=== PATIENT | male | born 1950 | race Caucasian/White ===

== ENCOUNTER 2017-11-13 21:13 | Inpatient (IN) | payer OTHER, MEDICARE ==
[~2017-11-13] VITALS: Ht 172.7 cm; Wt 71.9 kg
--- NOTE | 2017-11-13 21:13 | NUR ---
2112- PT BIBA FULL ARREST. DR. AGUAYO, RT AND HOUSE SUP AT BEDSIDE.
--- NOTE | 2017-11-13 21:14 | NUR ---
PATIENT IS A 67 Y/O MALE BIB [facility] WHO PRESENTS TO THE ED C/O FULL ARREST. PER [facility], PT HAD UNKNOWN DOWN TIME POSSIBLY 45 MINUTES, UTILITY MAINTENANCE WORKER CALLED 911. RIGHT IO ESTABLISHED BY [facility], 3 ROUND OF EPI WERE GIVEN IN THE FIELD. DR. AGUAYO AT RT AT BEDSIDE. PT NONVERBAL. UNABLE TO ASSESS PAIN. [facility] PERFORMING COMPRESSIONS. NO SIGNS OF N/V/D. PERRLA. PT REPOSITIONED FOR COMFORT, BED IN LOWEST POSITION. ER MD DR. AGUAYO NOTIFIED. WILL CONTINUE TO MONITOR. SEE CODE SHEET H/O---COPD, PARKINSONS, ASTHMA Addendum: 11/14/17 at 0305 by MEDDCV PATIENT IS A 67 Y/O MALE BIB [facility] WHO PRESENTS TO THE ED C/O FULL ARREST. PER [facility], PT HAD UNKNOWN DOWN TIME POSSIBLY 45 MINUTES, UTILITY MAINTENANCE WORKER CALLED 911. RIGHT IO ESTABLISHED BY [facility], 3 ROUND OF EPI WERE GIVEN IN THE FIELD. DR. AGUAYO AT RT AT BEDSIDE. PT NONVERBAL AND UNRESPONSIVE, [facility] 3. UNABLE TO ASSESS PAIN. [facility] PERFORMING COMPRESSIONS. PT VENTILATED WITH BVM. NO SIGNS OF N/V/D. PERRLA. PT REPOSITIONED FOR COMFORT, BED IN LOWEST POSITION. ER MD DR. AGUAYO NOTIFIED. WILL CONTINUE TO MONITOR. SEE CODE SHEET H/O---COPD, PARKINSONS, ASTHMA
[2017-11-13 21:15] VITALS: BP 80/47
--- NOTE | 2017-11-13 21:15 | NUR ---
Zofia hong in [facility] - 11/13/17 at 2228 by MEDRJJ ANJU Meredith-LUISA GIVEN
--- NOTE | 2017-11-13 21:16 | NUR ---
ACCU CH 54. D5W IVP GIVEN-NADR AT THIS TIME
--- NOTE | 2017-11-13 21:30 | NUR ---
ASSISTED DR AGUAYO WITH INTUBATION, SUCCESSFUL WITH SIZE 7.5 ETT SECURED AT 25 CM AT THE LIP, PLACED ON VENT SUPPORT AT DOCUMENTED SETTINGS APPROVED BY DR AGUAYO, SPUTUM COLLECTED AND SUBMITTED.
--- NOTE | 2017-11-13 21:32 | NUR ---
NG TUBE INSERTED. PT TOLERATED WELL.
--- NOTE | 2017-11-13 21:35 | NUR ---
ER MD DR. AGUAYO MADE AWARE OF HYPOTHERMIC TEMPERATURE RECTAL 93.8, BEAR HUG AND BLANKETS PLACED.
[2017-11-13] MEDS ORDERED: LEVOFLOXACIN 750 MG/D5W PREMIX 150 ML IV ONE (21:40)
[2017-11-13] MEDS ORDERED: VANCOMYCIN 1,000 MG in DEXTROSE 5% 250 ML IV ONE (21:40)
[2017-11-13] MEDS ORDERED: PIPERACILLIN/TAZOBACTAM 3.375 GM in DEXTROSE 5% 50 ML IV ONE (21:40)
[2017-11-13] MEDS ORDERED: NACL 0.9% 1,000 ML IV ONE ×2 (21:40→23:25)
[2017-11-13] MEDS ORDERED: PIPERACILLIN/TAZOBACTAM 3.375 GM VIAL IV ONE (21:45)
--- NOTE | 2017-11-13 22:30 | NUR ---
PLACEMENT CONFIRMED BY CHEST XRAY, ETT TUBE PULLED BACK TO 24 CM AT THE TEETH/GUM PER DR AGUAYO AND XRAY
--- NOTE | 2017-11-13 22:30 | NUR ---
NG TUBE REMOVED PER DR. AGUAYO. PT TOLERATED WELL.
[2017-11-13 22:35] LABS: HEMATOCRIT 34.5 % (36-52); HEMOGLOBIN 11.5 g/dL (12.0-18.0)
[2017-11-13 22:36] LABS: MEAN CORPUSCULAR HEMOGLOBIN 30 pg (27-31); MEAN CORPUSCULAR HGB CONC 30 g/dL (33-37); MEAN CORPUSCULAR VOLUME 100 fL (80-94); NEUTROPHILS % (AUTO) 77.5 % (42.2-75.2); PLATELET COUNT (AUTO) 245 K/uL (140-450); RED CELL DISTRIBUTION WIDTH 15.2 % (11.6-13.7)
[2017-11-13 22:37] LABS: BASOPHILS % (AUTO) 0.1 % (0.0-2.0); EOSINOPHILS % (AUTO) 1.5 % (0.0-4.0); LYMPHOCYTES % (AUTO) 17.2 % (20.5-51.1); MONOCYTES % (AUTO) 3.7 % (1.7-9.3)
[2017-11-13 22:38] LABS: CHOL/HDL RATIO 2.5 (1-4.5); EOSINOPHILS # (AUTO) 0.1 K/uL (0-0.4); LYMPHOCYTES # (AUTO) 1.2 K/uL (2.0-11.5); MONOCYTES # (AUTO) 0.3 K/uL (0.8-1.0); NEUTROPHILS # (AUTO) 5.4 K/uL (1.8-7.7)
[2017-11-13] MEDS ORDERED: NOREPINEPHRINE 4 MG in DEXTROSE 5% 250 ML IV ONE (22:40)
--- NOTE | 2017-11-13 22:40 | NUR ---
FAMILY BROUGHT TO THE BEDSIDE. DR. AGUAYO, OLENA RN, NINI RN AT BEDSIDE.
[2017-11-13] MEDS ORDERED: NOREPINEPHRINE 4 MG/4 ML VIAL IV ONE ×2 (22:44→22:45)
[2017-11-13 22:45] LABS: ALBUMIN 2.1 g/dL (3.4-5.0); ANION GAP 31.5 (8-16); CARBON DIOXIDE 14.5 mmol/L (21-32); CREATININE 1.8 mg/dL (0.7-1.3); TOTAL BILIRUBIN 0.7 mg/dL (0.0-1.0)
[2017-11-13] MEDS ORDERED: ONDANSETRON 4 MG/2 ML VIAL IVP PRN (22:50)
[2017-11-13] MEDS ORDERED: BEN50 PO (22:58)
[2017-11-13] MEDS ORDERED: CARB1TAB37 PO (22:58)
[2017-11-13] MEDS ORDERED: CLON0.5T PO (22:58)
[2017-11-13] MEDS ORDERED: MONT10TA35 PO (22:58)
[2017-11-13] MEDS ORDERED: NACL 0.9% 1,000 ML IV SCH (23:25)
[2017-11-13] MEDS ORDERED: VANCOMYCIN 1,000 MG VIAL ONE (23:33)
[2017-11-14] VITALS (100 sets, daily range): BP systolic 53–134; BP diastolic 25–92
--- NOTE | 2017-11-14 00:10 | NUR ---
PT TRANSFERRED TO ICU 5 WITH GENA ALMANZA
--- NOTE | 2017-11-14 00:10 | NUR ---
Patient will be admitted to care of DR. KELLOGG. Admited to ICU . Will go to room 5. Belongings list completed. Report to CHAD ALMANZA.
--- NOTE | 2017-11-14 00:10 | NUR ---
PT ADMIT FROM ER . PT COME BY HOSPITAL BED, PT COME WITH 2 RN AND ONE RT. PT IS ETT TO VENT WITH VENT SETTING AC 14,TV 400,FIO2 100% AND PEEP 5. TOLERATING WELL. PT ETT ON 24 CM LIP, ETT NO 7.5. PT WAS S/P FULL ARREST. DIMINIS TO HEATHER LUNGS.IV TO RIGHT FOREARM NO 20, RIGHT HAND 2 LINES BOTH NO 18, LEFT UPPER ARM NO 18.IO TO RIGHT LEOWE LEG. IV DEX 5 % IN NS AT 100 CC/HR AND LEVOPHED AT 15 MCG/MIN.EDEMA NOTED FROM IV INFILTRATE TO RIGHT ARM +3 NON PITTING. MULTIPLE SKIN TEARS TO LEFT ARM AND SKIN TEAR TO RIGHT ARM, MULTIPLE SCABS TO RIGHT KNEE, PRESSURE SORE TO SACRAL, MID BACK NON BLANCHABLE REDNESS.DARK DIRTY TO BOTH FOOT. ABD SOFT DISTENDED. F/C IN PLACE WITH YELLOW CLEAR URINE NOTED ABOUT 5 CC ON THE LINES.HYPOACTIVE BOWEL SOUNDS NOTED ALL QUADRANTS,GENTLE CARE GIVEN .KEPT CLEAN AND DRY.
[2017-11-14] MEDS: DEXT 5% /NACL 0.9% 1,000 ML IV SCH ×2 (00:30→08:50)
[2017-11-14] MEDS ORDERED: EPINEPHrine PFS 0.1 MG/ML SYR IVP ONE (01:00)
[2017-11-14] MEDS ORDERED: SODIUM POLYSTYRENE 15 GM/60 ML UDBTL PO SCH ×2 (01:25→19:30)
[2017-11-14] MEDS ORDERED: LORazepam 2 MG/ML VIAL IVP SCH (01:25)
--- NOTE | 2017-11-14 01:30 | NUR ---
SPEAK WITH MAY TO INSERT F/C. PT NPO EXCEPT MEDS. MADE AWARE K+ 6, PER MD TO GIVE KAY[place]ALE 30 GRAMS,ALSO PER TO ASK TO HELP TO INSERT THE CENTRAL LINE. AT THE UNITS AND AGREE TO INSERT THE CENTRAL LINE. FAMILY AT THE BED SIDE AND AGREE TO SIGN THE CONSENT.
--- NOTE | 2017-11-14 01:45 | NUR ---
NGT INSERTED.TO LEFT NARES.WAITING FOR X-RAY CONFIRMATION
--- NOTE | 2017-11-14 01:50 | NUR ---
CALLED AND ORDER CONTINUE ZOSYN 3.375 Q 8HRS AND CONTINUE [facility]. CHEST X-RAY IN AM.
[2017-11-14] MEDS ORDERED: VANCOMYCIN PER PHARMACY MC PRN ×2 (01:55→07:10)
--- NOTE | 2017-11-14 02:00 | NUR ---
CENTRAL LINE IS INSERTED BY DR. ORTIZ TO RIGHT INTERNAL JUGULAR. X-RAY PLACEMENT DONE RESULT STILL PENDING.
[2017-11-14] MEDS ORDERED: ALBUTEROL SULFATE/IPRATROPIU 3 ML SOL IH PRN (03:45)
[2017-11-14] MEDS ORDERED: NOREPINEPHRINE 4 MG/4 ML VIAL IV ONE (03:58)
[2017-11-14] MEDS: NOREPINEPHRINE 8 MG in DEXTROSE 5% 250 ML IV PRN ×4 (04:13→19:31)
--- NOTE | 2017-11-14 04:30 | NUR ---
CONTINUE ON BEAR HUGGER. TEMP AT THIS TIME 96.6
--- NOTE | 2017-11-14 04:45 | NUR ---
X-RAY RESULT CONFIRM PER MD WINTER TO USE THE CENTRAL LINE. USE CENTRAL LINE FOR THE IVF AND IV MEDS. INCREAS THE LEVOPHED TO 25 MCG/MIN D/T BP 70/47
[2017-11-14] MEDS ORDERED: PIPERACILLIN/TAZOBACTAM 3.375 GM in DEXTROSE 5% 50 ML IV SCH (05:00)
--- NOTE | 2017-11-14 05:30 | NUR ---
AM CARE GIVEN,BED BATH GIVEN, ORAL [place] TUBE INSERTED.WITH POSITIVE PLACEMENT HEARD OVER THE STOMACH. PT HAS DARK BLOOD SECRETION FROM THE GT,CONNECT TO LOW SUCTION. ABOUT 20 CC DRAIN NOTED.
[2017-11-14] MEDS ORDERED: PIPERACILLIN/TAZOBACTAM 3.375 GM VIAL IV ONE (05:42)
[2017-11-14] MEDS: ALBUTEROL SULFATE/IPRATROPIU 3 ML SOL IH SCH ×3 (06:46→19:17)
[2017-11-14 06:51] LABS: MEAN CORPUSCULAR HEMOGLOBIN 30 pg (27-31); MEAN CORPUSCULAR HGB CONC 32 g/dL (33-37); MEAN CORPUSCULAR VOLUME 93 fL (80-94); PLATELET COUNT (AUTO) 293 K/uL (140-450); RED BLOOD CELL COUNT(AUTO) 3.65 MIL/uL (4.20-6.10); RED CELL DISTRIBUTION WIDTH 13.6 % (11.6-13.7)
--- NOTE | 2017-11-14 07:27 | NUR ---
RECIVED PT ON VENT WITH SETTINGS CHARTED BREATH SOUNDS PRESENT BILAT DIMINISHED SXN PT WITH CRISTOBAL SECS SMALL AMT AMBU BAG AT BEDSIDE VENT PLUGGED INTO RED OUTLET DECREASED FI02 DOWN TO .80 RN AWARE WILL CONTINUE TO MONITOR PT ON VENT
--- NOTE | 2017-11-14 07:30 | NUR ---
RECEIVED PT FROM DIRECTOR OF ADULT EPILEPSY RN. PT DOES NOT FOLLOW COMMENDS. BEDSIDE MONITOR SHOWS ST 103, BP 89/63. PUPILS SLUGGISH, ETT TO VENT WITH SETTING FIO2 100%, VT 400, PEEP 5, AC 14. OG TUBE IN PLACE CONNECTED TO SUCTION WITH 200 MLS BLOODY SECRETION NOTED. PT HAS RIGHT IJ RUNNING LEVOPHED AT 24.99 MCG/MIN AND D5 NS AT 100 MLS/HR. MULTIPLE WOUNDS TO ALL THE EXTREMITIES, +2 PITTING EDEMA TO RIGHT ARM NOTED, GALAN CATH IN PLACE WITH 100 MLS LIGHT ROBE URINE NOTED. SCDS IN PLACE, HOB ELEVATED 30 DEGREES WITH LOW BED POSITION, FAMILY AT BEDSIDE. WILL CONTINUE TO MONITOR PT.
--- NOTE | 2017-11-14 07:31 | NUR ---
DR.ZAIDI BAILEY MADE AWARE ABOUT NEW CONSULT FROM . UP DATE THE PT STATUS. NEW ORDER PROTONIX 40 MG IV DAILY. ORDER NOTED AND CARRIED OUT.
[2017-11-14 07:59] LABS: WHITE BLOOD COUNT (AUTO) 32.1 K/uL (4.8-10.8)
[2017-11-14 08:00] LABS: LYMPHOCYTES % (MANUAL) 8 % (20-46); METAMYELOCYTES % 2 % (0-0); MONOCYTES % (MANUAL) 4 % (5-12)
--- NOTE | 2017-11-14 08:00 | NUR ---
TURNED AND REPOSITIONED PT, PT HAS WARM BLANKET MACHINE , TEMP IN NORMAL RANGE, TURNED OFF WARM BLANKET MACHINE
[2017-11-14] MEDS: LORazepam 2 MG/ML VIAL IVP PRN ×2 (08:09→13:23)
--- NOTE | 2017-11-14 08:09 | NUR ---
CALLED DR. VALDEZ Pena, PT BP DROPS TO 49/30. PER DR. KELLOGG GIVE PT NEOSNEPHRINE DRIP, WILL CARRY OUT.
--- NOTE | 2017-11-14 08:09 | NUR ---
PT JERKING AT THIS TIME AND BP DROPS TO 49/30, HOLD ATIVAN.
--- NOTE | 2017-11-14 08:30 | NUR ---
DR. NELSON IN TO SEE PT, NOTIFIED PT'S VITAL SIGNS. PER DR. NELSON, GIVE PT NS WIDE OPEN 2L. WILL CARRY OUT
[2017-11-14] MEDS ORDERED: SODIUM BICARBONATE 8.4% 100 MEQ in NACL 0.9% 1,000 ML IV SCH (08:40)
[2017-11-14] MEDS ORDERED: PHENYLEPHRINE 10 MG in NACL 0.9% 250 ML IV PRN (08:45)
[2017-11-14] MEDS: PHENYLEPHRINE 40 MG in NACL 0.9% 250 ML IV PRN ×3 (08:46→22:03)
[2017-11-14] MEDS: PANTOPRAZOLE 40 MG INJ VIAL IVP SCH (08:53)
[2017-11-14] MEDS ORDERED: DEXTROSE 50% 50 ML SYR IVP SCH ×2 (08:58→14:15)
[2017-11-14] MEDS ORDERED: INSULIN REGULAR, HUMAN 100 UNIT/ML VIAL IV SCH (09:01)
[2017-11-14 09:02] LABS: ANION GAP 21.7 (8-16); CREATININE 2.1 mg/dL (0.7-1.3); MAGNESIUM 2.3 mg/dL (1.8-2.4); TOTAL BILIRUBIN 1.8 mg/dL (0.0-1.0)
--- NOTE | 2017-11-14 09:05 | NUR ---
PATIENT HAS BEEN SCREENED AND CATEGORIZED HIGH NUTRITION RISK. PATIENT WILL BE SEEN WITHIN 1-2 DAYS OF ADMISSION. 11/13/18-11/14/[address]
[2017-11-14] MEDS ORDERED: SODIUM BICARBONATE 8.4% PFS 50 MEQ/50 ML SYR IVP SCH ×2 (09:06→16:10)
--- NOTE | 2017-11-14 09:16 | NUR ---
PT BP 116/[address] PER [address] NELSON, IT IS OK TO GIVE ATIVAN AT THIS TIME.
--- NOTE | 2017-11-14 09:18 | NUR ---
DECREASED FIO2 T0 60 INCREASED VT TO 500 RN AWARE
[2017-11-14 09:52] LABS: POTASSIUM 6.7 mmol/L (3.5-5.1)
--- NOTE | 2017-11-14 09:54 | NUR ---
DR. VALDEZ Pena IN TO SEE PT.
[2017-11-14] MEDS ORDERED: LEVOFLOXACIN 250 MG/D5 PREMIX 50 ML IV ONE (11:20)
--- NOTE | 2017-11-14 11:36 | NUR ---
decreased fio2 to .50 ARCHIE GIBBS
--- NOTE | 2017-11-14 12:00 | NUR ---
TURNED AND REPOSITIONED PT, ORAL CARE GIVEN. FAMILY AT BEDSIDE. BLOODY SECRETION NOTED WHILE CLEANING PT.
[2017-11-14 12:36] LABS: ANION GAP 21.2 (8-16); CARBON DIOXIDE 19.6 mmol/L (21-32); CREATININE 2.4 mg/dL (0.7-1.3); POTASSIUM 5.8 mmol/L (3.5-5.1)
[2017-11-14] MEDS: PIPER/TAZO 3.375GM/D5W PREMIX 50 ML IV SCH ×2 (13:17→20:05)
[2017-11-14] MEDS ORDERED: NACL 0.9% 1,000 ML IV SCH (14:00)
[2017-11-14] MEDS ORDERED: INSULIN REGULAR, HUMAN 100 UNIT/ML VIAL SUBQ ONE (14:00)
--- NOTE | 2017-11-14 14:16 | NUR ---
CM NOTE CHART REVIEWED FOR ADMISSION CRITERIA
[2017-11-14] MEDS ORDERED: INSULIN REGULAR, HUMAN 100 UNIT/ML VIAL IVP SCH (14:17)
--- NOTE | 2017-11-14 15:06 | NUR ---
11/14/2017 RD INITIAL ASSESSMENT COMPLETED PT TO BE PROVIDED WITH >75% ESTIMATED ENERGY AND PROTEIN NEEDS WITHIN 2-3 DAYS DIETITIAN WILL MONITOR NPO STATUS, NUTRITION-RELATED LABS TRENDING WNL, SKIN INTEGRITY, WEIGHTS, GI FUNCTION. DISCHARGE PLAN:ONGOING, PENDING CLINICAL COURSE. RACHEAL URBINA RD
[2017-11-14 15:58] LABS: CREATINE KINASE MB 81.7 ng/mL (0-3.6)
--- NOTE | 2017-11-14 16:15 | NUR ---
PAGED DR.PALIWAL Pena REGARDING CRITICAL LAB REPORT TROP 13.929, VOICE MESSAGE LEFT, THEN CALLED DR. VALDEZ Bernal
--- NOTE | 2017-11-14 18:00 | NUR ---
TURNED AND REPOSITIONED PT, PT HAD SMALL AMOUNT OF BM. CLEANED PT.
[2017-11-14 18:09] LABS: ANION GAP 17.3 (8-16); CARBON DIOXIDE 22.3 mmol/L (21-32); CREATININE 2.9 mg/dL (0.7-1.3)
--- NOTE | 2017-11-14 18:10 | NUR ---
CRITICAL LAB REPORT RECEIVED, TROP 15.67, DR. VALDEZ Valerio AT BEDSIDE. MADE HIM AWARE PAGED DR. VALDEZ Pena THIS AFTERNOON REGARDING CRITICAL LAB REPORT, DID NOT RECEIVE RESPONSE YET .
[2017-11-14 18:11] LABS: POTASSIUM 5.6 mmol/L (3.5-5.1)
--- NOTE | 2017-11-14 19:15 | NUR ---
REPORT GIVEN TO OIL FIELD PIPELINE SUPERVISOR RN.
--- NOTE | 2017-11-14 19:17 | NUR ---
RECEIVED ON A SmallableSCAPE R860 VENTILATOR PLUGGED INTO RED OUTLET TO A PORTEX ENDOTRACHEAL TUBE #7.5 SECURED AT 24CM LIP/GUM LINE WITH AN ANCHOR FAST CUFF PRESSURE CHECKED NOTED AMBU BAG NOTED AT HOB LOC EYES OPEN NON-RESPONSIVE BREATH SOUNDS DIMINISHED BILATERAL WITH GOOD CHEST RISE AIRWAY PATENT
[2017-11-14] MEDS: SODIUM BICARBONATE 8.4% 150 MEQ in DEXTROSE 5% 1,000 ML IV SCH (19:29)
--- NOTE | 2017-11-14 19:30 | NUR ---
RECEIVED REPORT FROM AM SHIFT PT IS LETHARGIC. CONT ON ETT TO VENT WITH VENT SETTING AC RATE 14,TV 500,FIO2 45 AND PEEP 5. NO RESP DISTRESS AT THIS TIME. HEATHER LUNGS SOUND DIMINISH. HOB UP 30-45 DEGREES.ST ON MONITOR. CENTRAL LINE TO RIGHT IJ TRIPLE LUMENS INTACT WELL, NO S/S OF INFECTION ON THE SITE. CONT ON IV SODIUM BICARBONATE 8.4% 150 MEQ IN DEX 5% 1000 CC AT 150 ML/HR. CONT ON LEVOPHED 30 MCG/HR AND PHENYLEPRINE AT 25 MCG/MIN TOLERATED WELL. CONT ON IV ABT VANCOMYCIN AND ZOSYN ORDER.SKIN WARM TO TOUCH. OGT IN PLACE, PLACE MENT CONFIRM. PT REMIND NPO XCEPT MEDS. ABD SOFT DISTENDED. POSITIVE BOWEL SOUNDS ALL QUADRANTS. SKIN NON INTACT. MULTIPLE SKIN TEARS ,EDEMA TO RIGHT ARM PITTING+2 AND WOUND ON SACRAL. F/C IN PLACE WITH YELLOW CLEAR URINE NOTED ON THE BAG.KEPT PT CLEAN AND DRY.
[2017-11-14] MEDS: SODIUM BICARBONATE 8.4% PFS 50 MEQ/50 ML SYR IVP SCH ×3 (19:45→20:15)
--- NOTE | 2017-11-14 19:45 | NUR ---
LABS CALLED AND REPORT THE PT IS HIGH >120,INR>[address] KELLOGG MADE AWARE. NEW ORDER TO DO CT SCAN CHEST WITH CONTRAST FOR R/O PE AND ULTRASOUND LEG FOR DVT TO BLE. ORDER NOTED AND CARRIED.
[2017-11-14 19:47] LABS: PROTHROMBIN TIME > 120.0 secs (10.8-13.4)
--- NOTE | 2017-11-14 20:50 | NUR ---
SODIUM BICARBONATE 8.4 % 50 MEQ SYR GIVEN X 3 Q 15 MINUTES TOLERATED WELL. FAMILY AT BED SIDE.
--- NOTE | 2017-11-14 22:00 | NUR ---
AWAKE STABLE NO APPARENT RESPIRATORY DISTRESS NOTED GOOD CHEST RISE FAMILY AT BEDSIDE
[2017-11-14] MEDS: VANCOMYCIN 750 MG in DEXTROSE 5% 250 ML IV SCH (22:01)
--- NOTE | 2017-11-14 22:15 | NUR ---
ULTRASOUND TO BLE DONE RESULT STILL PENDING. BLEEDING NOTED IN THE MOUTH,CLEAN AREA. SON AT BED SIDE.
--- NOTE | 2017-11-14 22:46 | NUR ---
EXPLAIN TO SON THE ORDER FOR CT CHEST WITH CONTRAST. PER SON WAIT FOR HIS SISTER ROBLES FOR CONSENT ABD THE FAMILY STILL DISCUSS ABOUT THE ORDER.
[2017-11-15] VITALS (106 sets, daily range): BP systolic 65–128; BP diastolic 45–78
[2017-11-15] MEDS: NOREPINEPHRINE 8 MG in DEXTROSE 5% 250 ML IV PRN ×5 (00:09→23:55)
[2017-11-15] MEDS: ALBUTEROL SULFATE/IPRATROPIU 3 ML SOL IH SCH ×4 (00:24→19:27)
[2017-11-15] MEDS: SODIUM BICARBONATE 8.4% 150 MEQ in DEXTROSE 5% 1,000 ML IV SCH ×2 (01:45→04:59)
--- NOTE | 2017-11-15 01:45 | NUR ---
IVF STILL RUNNING AT 150 CC/HR ORDER ABOUT 500 CC IN THE BAG
--- NOTE | 2017-11-15 02:00 | NUR ---
PT SLEEPING, NO S/S OF RESP.DISTRESS. SON AT BED SIDE.
--- NOTE | 2017-11-15 04:00 | NUR ---
AM CARE GIVEN,SPONGE BATH,MOUTH CARE AND F/C CARE. KEPT PT CLEAN AND DRY.
[2017-11-15] MEDS: PIPER/TAZO 3.375GM/D5W PREMIX 50 ML IV SCH ×3 (04:53→21:07)
[2017-11-15] MEDS: PHENYLEPHRINE 40 MG in NACL 0.9% 250 ML IV PRN ×3 (04:55→18:27)
--- NOTE | 2017-11-15 05:21 | NUR ---
CENTRAL LINE DRESSING CHANGE SYLVIA,NO S/S OF INFECTION, ALL LINE FLUSHING WELL. KEPT CLEAN AND DRY.
[2017-11-15 06:10] LABS: MEAN CORPUSCULAR VOLUME 91 fL (80-94)
[2017-11-15 06:22] LABS: HEMATOCRIT 30.5 % (36-52); MEAN CORPUSCULAR HEMOGLOBIN 30 pg (27-31); MEAN CORPUSCULAR HGB CONC 33 g/dL (33-37); PLATELET COUNT (AUTO) 168 K/uL (140-450); RED BLOOD CELL COUNT(AUTO) 3.34 MIL/uL (4.20-6.10); RED CELL DISTRIBUTION WIDTH 13.1 % (11.6-13.7)
--- NOTE | 2017-11-15 06:45 | NUR ---
ROBLES DAUGHTER MADE AWARE THAT ULTRA SOUND TO BLE DONE AND RESULT NEGATIVE DVT . ALSO MADE AWARE THERE IS ORDER FOR CHEST CT WITH CONTRAST TO R/O PE, ACCORDING TO RADIOLOGY UNABLE TO DO IT D/T KIDNEY FUNCTION NOT GOOD AT THIS TIME BUN AND CREAT IS STILL HIGH.WILL F/U IN AM SHIFT WITH .
[2017-11-15 06:51] LABS: ALBUMIN 1.8 g/dL (3.4-5.0); ANION GAP 15.8 (8-16); CARBON DIOXIDE 28.1 mmol/L (21-32); MAGNESIUM 1.5 mg/dL (1.8-2.4); PHOSPHORUS 4.7 mg/dL (2.5-4.9); POTASSIUM 4.9 mmol/L (3.5-5.1); TOTAL BILIRUBIN 3.8 mg/dL (0.0-1.0)
--- NOTE | 2017-11-15 07:09 | NUR ---
RECEIVED PT ON [place] ON A/C 12 VT500 PEEP5 FIO2 45 ALARMS ARE ON AND AUDIBEL BMV HOB PTS ET TUBE SIZE 7.5 IS SECURE 24CM TEETH PT IN HF ASLEEP BS DIMINISHED I\L LAVAGE AND SX SMALL BLOOD TINGED VENT PLUGGED INTO RE OUTLET NO APPARENT DISTRESS NOTED
--- NOTE | 2017-11-15 07:20 | NUR ---
REPORT GIVEN TO BRANDY SUTHERLAND MADE AWARE TO ASK MD ORDER OF PNA AND FLUE VACCINE.PT IS STABLE AT THIS TIME. Addendum: 11/15/17 at 0728 by Sravanthi Rubio RN GUSTABO CAPUTO.
--- NOTE | 2017-11-15 07:28 | NUR ---
REPORT GIVEN TO BRANDY KULKARNI. MADE AWARE THAT UNABLE TO DO CHEST CT SCAN WITH CONTRAST DO TO BUN AND CREAT IS HIGH. TO FOLLOW UP WITH MD IN AM.
--- NOTE | 2017-11-15 07:41 | NUR ---
DR KELLOGG COME TO SEE PT AND MADE AWARE THAT CHEST CT IS NOT DONE D/T BUN AND CREAT HIGH
--- NOTE | 2017-11-15 07:44 | NUR ---
SEEN BY DR. KELLOGG AT BEDSIDE. PT IS DNR CODE STATUS FAMILY HAD SIGN THE CODE STATUS.
[2017-11-15] MEDS ORDERED: SODIUM BICARBONATE 8.4% 50 MEQ in NACL 0.9% 1,000 ML IV SCH (07:50)
--- NOTE | 2017-11-15 08:00 | NUR ---
Patient HR 120s, and receiving levophed, and neosynephrine high dose, and sbp 90s. On vent to oral ETT with settings FIO2 45%, TV 500, AC 14, peep +5. Family at bedside, and I did some teaching regarding the HR, and gave simple explanation regarding how vasopressor drips increase the blood pressure to sustain bp. Flex Sanchez RN
[2017-11-15 08:04] LABS: EOSINOPHILS % (MANUAL) 1 % (0-4); LYMPHOCYTES % (MANUAL) 6 % (20-46); MONOCYTES % (MANUAL) 3 % (5-12)
[2017-11-15] MEDS ORDERED: NACL 0.9% IV SCH ×2 (09:00→17:00)
[2017-11-15] MEDS ORDERED: SODIUM BICARBONATE IV SCH ×2 (09:00→17:00)
[2017-11-15] MEDS ORDERED: PHYTONADIONE 10 MG in NACL 0.9% 50 ML IV SCH (09:00)
[2017-11-15] MEDS: PANTOPRAZOLE 40 MG INJ VIAL IVP SCH (09:30)
[2017-11-15] MEDS: POLYVINYL ALCOHOL 1.4% OP 15 ML SOL OP SCH ×3 (09:30→16:26)
[2017-11-15] MEDS: CALCIUM CARB 600 MG TAB NG SCH ×2 (09:32→21:07)
--- NOTE | 2017-11-15 10:00 | NUR ---
Patient remains on levophed @ 25mcg/min, and neosynephrine drip to keep sbp > 90s, unable to titrate due to patient vs labile, and do dip down to mid 70s at times. Patient needs frequent suctioning, mod amt pink tinged secretions. Flex Sanchez RN
--- NOTE | 2017-11-15 10:34 | NUR ---
VENT CHECK, NO CHANGES MADE FAMILY AT BEDSIDE
[2017-11-15] MEDS ORDERED: SODIUM BICARBONATE 8.4% 50 MEQ in DEXTROSE 5% 1,000 ML IV SCH (11:00)
--- NOTE | 2017-11-15 12:00 | NUR ---
EEG DONE BY RADHA Mckay
--- NOTE | 2017-11-15 12:00 | NUR ---
Hematology visits patient, updates family regarding patient having problem with coagulation. Patient did receive vitamin K earlier today IVPB. Flex Sanchez RN
--- NOTE | 2017-11-15 12:02 | NUR ---
VENT CHECK, NO CHANGES MADE PT SLEEPING WITH FAMILY AT BEDSIDE
[2017-11-15 12:26] LABS: PROTHROMBIN TIME 75.2 secs (10.8-13.4)
--- NOTE | 2017-11-15 14:00 | NUR ---
Family members coming in all day, two at a time, visiting with patient, and given privacy to visit. Flex Sanchez RN
[2017-11-15] MEDS: LORazepam 2 MG/ML VIAL IVP PRN (16:26)
--- NOTE | 2017-11-15 16:45 | NUR ---
Family at nursing station, and mail messenger updates family on patient present condition, and family gives verbal acknowledgement of understanding information received. Flex Sanchez RN
--- NOTE | 2017-11-15 19:00 | NUR ---
Correction on neosynephrine dose rate, is 100mcg/min due to concentration 40mg/250ml, and levophed drip @ 25mcg/min. SBP stay mid 90s most of the day, and have not titrated drips due to consistent low bps. ST HR 120s without ectopy. Flex Sanchez RN
--- NOTE | 2017-11-15 19:30 | NUR ---
RECEIVED A REPORT FROM LAUREANO NAVA RN. PT EYES CLOSED. NONVERBAL. UNABLE TO FOLLOW COMMANDS. ETT TO VENT AC14, TV 500, FIO2 45, PEEP. BILATERAL LUNG SOUNDS WITH CRACKLES AND DIMINISHED. NOTED BLOOD TINGED SECRETION IN THE TUBING. OGT IN PLACE. S1 ANS S2 HEARD WITHOUT ABNORMAL SOUNDS. CENTRAL LINE TO RIJ WITH TRIPLE LUMEN. ALL PATENT AND ASYMPTOMATIC. GENERALIZED PITTING EDEMA +2 NOTED. MULTIPLE DISCOLORATION AND SKIN TEARS ON UPPER EXTREMITIES. REDNESS TO COCCYX AREA NOTED. PT HAD LARGE SOFT BROWN BOWEL MOVEMENT. ASSISTED WITH HYGIENE. PEDAL PULSE MORE THAN 3 SECONDS. ON LEVOPHED AND JAMAL-SYNEPHRINE DRIPS. ON CONTINUOUS CARDIAC MONITORING AND ST ON MONITOR. AFEBRILE. FLACC 0. CALL LIGHT IN REACH. BED KEPT TO LOWEST AND HOB ELEVATED TO 30 DEGREES. WILL CONTINUE TO MONITOR.
--- NOTE | 2017-11-15 19:41 | NUR ---
RECEIVED PT STABLE ON VENT SUPPORT AT DOCUMENTED SETTINGS, SUCTIONED SMALL AMOUNTS OF THIN BLOOD TINGED SECRETIONS, HHN TX GIVEN, NO RESP DISTRESS OR SOB NOTED AT THIS TIME, 7.5 ETT SECURED AND PATENT AT 24 CM AT THE GUMS, ALARMS SET AND AUDIBLE, AMBU BAG AT BEDSIDE, VENT PLUGGED INTO RED OUTLET, WILL CONT TO MONITOR.
[2017-11-15] MEDS ORDERED: AMIODARONE 450 MG in DEXTROSE 5% 250 ML IV SCH (20:05)
--- NOTE | 2017-11-15 20:05 | NUR ---
PATIENT IS HAVING CONTINOUS V-TACH; PULSE CHECKED, PRESENT; PAGED DR. Carol KELLOGG, WITH NEW ORDER TO START PATIENT ON AMIODARONE DRIP PER PROTOCOL; CARRIED OUT.
[2017-11-15] MEDS ORDERED: AMIODARONE 150 MG/3 ML VIAL IV ONE (20:11)
--- NOTE | 2017-11-15 20:11 | NUR ---
AMIODARONE LOADING DOSE ADMINISTERED ORDERED.
[2017-11-15] MEDS ORDERED: AMIODARONE 450 MG/9 ML VIAL IV ONE (20:26)
--- NOTE | 2017-11-15 20:33 | NUR ---
AMIODARONE MAINTENANCE DOSE STARTED.
--- NOTE | 2017-11-15 20:35 | NUR ---
BP=80/62. AQ=107, 99%, R=31. JAMAL-SYNEPHRINE @150MCG/MIN AND LEVOPHED @30MCG/MIN AT THIS TIME. WILL CONTINUE TO MONITOR.
[2017-11-15] MEDS ORDERED: PIPERACILLIN/TAZOBACTAM 3.375 GM VIAL IV ONE (21:31)
--- NOTE | 2017-11-15 21:55 | NUR ---
PATIENT'S FAMILY DECIDED TO DO STOPPED EVERYTHING OR TERMINAL WEANING OF THE PATIENT; PAGED DR. NEDA KELLOGG TO INFORMED HIM OF FAMILY'S DECISION.
--- NOTE | 2017-11-15 22:15 | NUR ---
NO RETURN CALL FROM DR. NEDA KELLOGG; PAGED HIM AGAIN TO RELAY THE PATIENT'S FAMILY WISHES OR DECISION.
--- NOTE | 2017-11-15 22:32 | NUR ---
STILL NO RETURN CALL FROM DR. NEDA KELLOGG; PAGED HIM AGAIN.
[2017-11-15] MEDS: VANCOMYCIN 750 MG in DEXTROSE 5% 250 ML IV SCH (22:35)
--- NOTE | 2017-11-15 23:00 | NUR ---
DR. NEDA KELLOGG WAS PAGED AGAIN.
--- NOTE | 2017-11-15 23:15 | NUR ---
STILL NO RETURN CALL FROM DR.MIT KELLOGG, SO I PAGED DR. CARTWRIGHT TO INFORM HER ABOUT THE PATIENT'S WISHES OR DECISION ON TERMINAL WEANING; SHE ANSWERED IMMEDIATELY AND ORDERED TO GO AHEAD TERMINAL WEANING AND START PATIENT ON COMFORT MEASURES, MORPHINE DRIP PER PROTOCOL; RABBLE FURNACE TENDER BAYLEE WAS INFORMED TOO.
[2017-11-15] MEDS ORDERED: MORPHINE SULFATE 50 MG in NACL 0.9% 45 ML IV SCH (23:20)
--- NOTE | 2017-11-15 23:24 | NUR ---
PAGED AGAIN DR. RED THRU HIS CELLPHONE BUT NO RETURN CALL SO PAGED HIM AGAIN FOR THE 6TH TIME AT 3465 AND THIS TIME HE ANSWERED MY PAGE; INFORMED HIM ABOUT THE FAMILY'S DECISION ON TERMINAL WEANING AND TOLD HIM TOO THAT DR. CARTWRIGHT ALREADY GAVE ORDER ABOUT THE COMFORT MEASURES; NO FURTHER ORDERS MADE.
[2017-11-16] VITALS (7 sets, daily range): BP systolic 41–123; BP diastolic 24–75
[2017-11-16] MEDS: PHENYLEPHRINE 40 MG in NACL 0.9% 250 ML IV PRN (00:16)
--- NOTE | 2017-11-16 01:20 | NUR ---
RT, THIS RN, CHARGE NURSE, PT'S SON AT BED SIDE. ALL DRIPS ARE DISCONTINUED. PALLIATIVE EXTUBATION COMPLETED. OGT REMOVED. BLOOD MIXED SPUTUM NOTED. ORALLY SUCTIONED. PLACED O2 VIA NC FOR COMFORT. MORPHINE DRIP IS RUNNING ORDERED FOR COMFORT.
--- NOTE | 2017-11-16 01:25 | NUR ---
PT EXTUBATED PER DR KELLOGG'S ORDERS, PLACED ON 2LPM NC, ON COMFORT MEASURES.
--- NOTE | 2017-11-16 01:30 | NUR ---
FAMILY MEMBERS ARE AT BED SIDE. BP=42/24. HR=96, R=26. 60% O2 SAT. FLACC 0.
--- NOTE | 2017-11-16 01:45 | NUR ---
PT ASYSTOLE. NO CHEST MOVEMENT. NO PULSE PALPATED AND AUSCULTATED. PRONOUNCED BY DR. LEDBETTRE. FAMILY AT BED SIDE.
--- NOTE | 2017-11-16 02:18 | NUR ---
[employer] CALLED @[phone] AND LEFT A MESSAGE OF PT'S . [employer] WILL BE CALLING THE FACILITY.
--- NOTE | 2017-11-16 02:25 | NUR ---
NEDA BENÍTEZ WAS PAGED AND LEFT A MESSAGE WITH THE EXCHANGE.
--- NOTE | 2017-11-16 02:30 | NUR ---
CALLED [facility] @[phone] AND SPOKE TO NOE. ID# [id number]
--- NOTE | 2017-11-16 02:49 | NUR ---
CARLOS FROM [facility] CALLED AND SAID THEY WILL NOT TAKE THE BODY AND CALL [facility] OFFICE TO RELEASE THE BODY.
--- NOTE | 2017-11-16 03:18 | NUR ---
DR. KELLOGG CALLED BACK AND WAS INFORMED ABOUT THE PT'S .
--- NOTE | 2017-11-16 04:07 | NUR ---
CALLED [employer]ELD [employer]PLING TECHNIC[employer] @[phone] AGAIN BECAUSE NO CALL WAS RECEIVED YET. SPOKE WITH TREVON AND SHE SAID THEY ARE EXTREMELY BACKED UP SO WE WILL BE RECEIVING A CALL SOON IT'S OUR TURN.
--- NOTE | 2017-11-16 06:27 | NUR ---
[employer] SERV[employer] TEAM MEMBER NUMBER CALLED @ [phone], [place] ANSWERING SERVICE MADE AWARE OF PT EXPIRATION. MARIETTA STATED SHE WOULD RELAY MESSAGE TO [employer] SERVICE TEAM MEMBER. AWAITING CASE NUMBER AND FURTHER INSTRUCTION.
--- NOTE | 2017-11-16 08:00 | NUR ---
RECEIVED CALL FROM FLANGING MACHINE OPERATOR OFFICE AFTER COMPLETED GIVE THE REPORT TO MARGEUTY JANICE MUELLER SHE RELEASED THE BODY TO MORTUARY CASE # [id number].
--- NOTE | 2017-11-16 08:05 | NUR ---
NOTIFIED [employer] WILL COME TO DOWEL PIN WORKER THE BODY .
--- NOTE | 2017-11-16 08:10 | NUR ---
CALLED AND NOTIFIED PT. DAUGHTER KASSI AND ROBLES REGARDING HOME [employer] SAFETY PROGRAM COORDINATOR.
[2017-11-16] MEDS ORDERED: MUPIROCIN 2% OINT 22 GM TUBE TP SCH (09:00)
[2017-11-16] MEDS ORDERED: CHLORHEXADINE GLUC 2% CLOTH TP SCH (09:00)
--- NOTE | 2017-11-16 09:35 | NUR ---
THE BODY CONTRACT CONSULTANT BY HALI FROM [facility] ALL PAPER SIGN MOHAMMED THE HOUSE SUPERVISE NOTIFIED.
--- NOTE | 2017-11-17 08:14 | NUR ---
WOUND CARE EVALUATION NOT DONE. PT .
== END 2017-11-16 01:45 | disposition expired | DRG 871 ==
LOC: MED 21:13 → EDBD 21:13 → MIC 22:55
PROVIDERS: ADMIT Preventive Medicine Preventive Medicine/Occupational Environmental Medicine; ATTEND Preventive Medicine Preventive Medicine/Occupational Environmental Medicine
PROC: 5A12012 Performance of Cardiac Output, Single, Manual (ICD-10-PCS; principal; 2017-11-13)
PROC: 5A1945Z Respiratory Ventilation, 24-96 Consecutive Hours (ICD-10-PCS; 2017-11-13)
PROC: 0BH17EZ Insertion of Endotracheal Airway into Trachea, Via Natural or Artificial Opening (ICD-10-PCS; 2017-11-13)
PROC: 02HV33Z Insertion of Infusion Device into Superior Vena Cava, Percutaneous Approach (ICD-10-PCS; 2017-11-14)
DX: A41.9 Sepsis, unspecified organism (principal); R65.21 Severe sepsis with septic shock; J96.01 Acute respiratory failure with hypoxia; I46.9 Cardiac arrest, cause unspecified; I21.4 Non-ST elevation (NSTEMI) myocardial infarction; J69.0 Pneumonitis due to inhalation of food and vomit; K72.00 Acute and subacute hepatic failure without coma; G93.1 Anoxic brain damage, not elsewhere classified; D68.59 Other primary thrombophilia; E83.51 Hypocalcemia; I47.2 Ventricular tachycardia; N17.9 Acute kidney failure, unspecified; J44.0 Chronic obstructive pulmonary disease with (acute) lower respiratory infection; Z66 Do not resuscitate; D64.9 Anemia, unspecified; E87.5 Hyperkalemia; F41.9 Anxiety disorder, unspecified; G20 Parkinson's disease; K75.89 Other specified inflammatory liver diseases; N40.0 Benign prostatic hyperplasia without lower urinary tract symptoms; N18.9 Chronic kidney disease, unspecified; I13.10 Hypertensive heart and chronic kidney disease without heart failure, with stage 1 through stage 4 chronic kidney disease, or unspecified chronic kidney disease; R74.0 Nonspecific elevation of levels of transaminase and lactic acid dehydrogenase [LDH]; Z22.322 Carrier or suspected carrier of Methicillin resistant Staphylococcus aureus; Z87.891 Personal history of nicotine dependence; Z88.2 Allergy status to sulfonamides
CPT/HCPCS: 31500; 36415; 36600; 43760; 71045; 80048; 80053; 82550; 82553; 82803; 82948; 83605; 83735; 83880; 84100; 84484; 85025; 85384; 85610; 85651; 85730; 86140; 87040; 87070; 87081; 87186; 87205; 89220; 93005; 93970; 94003; 94640; 95816; 96365; 96366; 96367; 96368; 99291; C9113; J0282; J1642; J1815; J1956; J2060; J2270; J2370; J2543; J3370; J3430; J3490; J7030; J7060; J7620; Q0092